=== PATIENT | male | born 1985 | race Caucasian/White ===

== ENCOUNTER 2017-04-10 10:09 | Emergency (ER) | payer BC ==
[~2017-04-10] VITALS: Ht 162.6 cm; Wt 92.7 kg
[2017-04-10 10:12] VITALS: Ht 162.6 cm; Wt 92.7 kg
[2017-04-10] MEDS ORDERED: IBUPROFEN 600 MG TAB PO ONE (11:00)
--- NOTE | 2017-04-10 11:26 | RADRPT ---
PROCEDURE: XR Ankle. CLINICAL INDICATION: Pain status post injury. TECHNIQUE: Right ankle, three views. COMPARISON: None. FINDINGS: The bone mineralization is age appropriate. There is a small avulsion fracture of the tip of the lateral malleolus with associated soft tissue e ren. There is no significant joint space narrowing. Ankle mortise appears symmetric. Talar dome appears intact. IMPRESSION: Small avulsion fracture of the tip of the right lateral malleolus with associated soft tissue edema. RPTAT: GG Jordana Lemon Physician Date Time Electronically viewed and signed by Jordana Lemon Physician on 04/10/2017 11:26 PH/
[2017-04-10] MEDS ORDERED: HYDR-906 PO (11:38)
[2017-04-10] MEDS ORDERED: IBUP800T25 PO (11:38)
--- NOTE | 2017-04-10 12:06 | ERD ---
ER Documentation Chief Complaint Chief Complaint PAIN & SWELLING TWISTED RIGHT ANKLE LAST NIGHT HPI 31-year-old male complaining of right ankle pain. Patient stated that he twisted last night when walking. His ankle was turned outwards. He was able to bear weight immediately after the injury. But he could not bear weight anymore. Denies any other injuries. ROS All systems reviewed and are negative except as per history of present illness. Medications Home Meds Active Scripts Hydrocodone/Acetaminophen (Brookwood 5-325 Tablet) 1 Each Tablet, 1 TAB PO Q6H Y for SEVERE PAIN LEVEL 7-10, #5 TAB Prov:GEORGIANA GUAJARDO. ASSOCIATE PUBLISHER 04/10/17 Ibuprofen* (Motrin*) 800 Mg Tab, 800 MG PO Q6H Y for PAIN AND OR ELEVATED TEMP, #30 TAB Prov:GEORGIANA GUAJARDO. ASSOCIATE PUBLISHER 04/10/17 Allergies Allergies: Coded Allergies: No Known Allergy (Unverified , 04/10/17) PMhx/Soc Medical and Surgical Hx: pt denies Medical Hx, pt denies Surgical Hx Hx Alcohol Use: Yes Hx Substance Use: No Hx Tobacco Use: No Smoking Status: Never smoker Physical Exam Vitals Vital Signs Date Time Temp Pulse Resp B/P Pulse Ox O2 Delivery O2 Flow Rate FiO2 04/10/17 10:12 98.7 130 20 165/85 97 Physical Exam General: Well-developed, well-nourished, conscious and coherent, in no distress Skin: Warm and dry without rash, good texture and turgor Head: Normocephalic without evidence of trauma Eyes: Sclera and conjunctivae normal; pupils equal, round, and reactive to light; extraocular movements are intact Heart: Regular rate and rhythm. No murmur, rub, or gallops heard Extremities: Aspect the right ankle swollen, tenderness over the lateral malleolus. Limited range of motion of the right ankle due to pain. No proximal fibular tenderness of the right lower extremity. Good strength bilaterally. No clubbing, cyanosis, or edema. Peripheral pulses are intact. Sensation intact Neuro: Alert and oriented 4, GCS 15. Cranial nerves grossly intact. Motor and sensory exams nonfocal. Moves all extremities. Speech clear. Gait normal Results 24 hrs Current Medications Medications (Trade) Dose Ordered Sig/Lovely Route PRN Reason Start Time Stop Time Status Last Admin Dose Admin Ibuprofen (Motrin) 600 mg ONCE ONCE PO 04/10/17 11:00 04/10/17 11:01 DC 04/10/17 10:44 PROCEDURE: XR Ankle. CLINICAL INDICATION: Pain status post injury. TECHNIQUE: Right ankle, three views. COMPARISON: None. FINDINGS: The bone mineralization is age appropriate. There is a small avulsion fracture of the tip of the lateral malleolus with associated soft tissue edema. There is no significant joint space narrowing. Ankle mortise appears symmetric. Talar dome appears intact. IMPRESSION: Small avulsion fracture of the tip of the right lateral malleolus with associated soft tissue edema. RPTAT: GG Jordana Lemon Physician Date Time Electronically viewed and signed by Jordana Lemon Physician on 04/10/2017 11:26 PH/ CC: GEORGIANA GUAJARDO. ASSOCIATE PUBLISHER Procedures/MDM Well-appearing 31-year-old male present ED was right ankle pain after he inverted his ankle last night. X-ray of the right ankle showed a small avulsion fracture at the distal lateral malleolus of the right ankle. She does not have any proximal fibular tenderness, I doubt Maisonneuve fracture. The area of injury was immobilized with an Aircast splint. Patient was noted to be comfortable and neurovascularly intact both before and after the immobilization. Patient also given crutches for ambulation. Ibuprofen given to the patient in the ED for pain. Patient appears well, stable for discharge and outpatient management. Medical decision making shared with patient and family. Education provided to patient and family. Patient and family expressed understanding of the plan. Medications on discharge: Profen, Brookwood. Follow-up: Primary care provider in 2-3 days or return to ED if worse. Disclaimer: Inadvertent spelling and grammatical errors are likely due to EHR/ dictation software use and do not reflect on the overall quality of patient care. Also, please note that the electronic time recorded on this note does not necessarily reflect the actual time of the patient encounter. Departure Diagnosis: Primary Impression: Fracture of malleolus Encounter type: initial encounter Fracture type: closed Laterality: right Qualified Code: S82.891A - Closed fracture of malleolus of right ankle, initial encounter Condition: Stable Patient Instructions: Fracture, Ankle (General) Referrals: [facility] YOU HAVE RECEIVED A MEDICAL SCREENING EXAM AND THE RESULTS INDICATE THAT YOU DO NOT HAVE A CONDITION THAT REQUIRES URGENT TREATMENT IN THE EMERGENCY DEPARTMENT. FURTHER EVALUATION AND TREATMENT OF YOUR CONDITION CAN WAIT UNTIL YOU ARE SEEN IN YOUR DOCTORS OFFICE WITHIN THE NEXT 1-2 DAYS. IT IS YOUR RESPONSIBILITY TO MAKE AN APPOINTMENT FOR FOLOW-UP CARE. IF YOU HAVE A PRIMARY DOCTOR --you should call your primary doctor and schedule an appointment IF YOU DO NOT HAVE A PRIMARY DOCTOR YOU CAN CALL OUR PHYSICIAN REFERRAL HOTLINE AT IF YOU CAN NOT AFFORD TO SEE A PHYSICIAN YOU CAN CHOSE FROM THE FOLLOWING [facility] [address] [facility] [facility] [address] [facility] [address] [facility] [address] [facility]. [facility] [address] [facility]. [facility] [address] Additional Instructions: Call your primary care doctor TOMORROW for an appointment during the next 1 WEEK.Tell the psychiatric secretary that you were referred from this facility.See the doctor sooner or return here if your condition worsens before your appointment time. GEORGIANA GUAJARDO NP Apr 10, 2017 12:06
[2017-04-10 12:17] VITALS: BP 153/85
== END 2017-04-10 12:20 | disposition home or self-care (01) ==
LOC: FTE 10:09
DX: S82.891A Other fracture of right lower leg, initial encounter for closed fracture (principal); X50.9XXA Other and unspecified overexertion or strenuous movements or postures, initial encounter; Y92.9 Unspecified place or not applicable